=== PATIENT | female | born 1965 | race Two or more races ===

== ENCOUNTER → 2024-04-09 | Outpatient (CLI) | payer MEDICAID, SELFPAY ==
--- NOTE | 2024-04-09 10:29 | XR_ITS ---
Examination: Bilateral hands, 6 views. Technique: AP, Oblique, Lateral each hand total 6 views Date and time of exam: April 09, 2024 1034 hours INDICATIONS: Bilateral hand pain beginning one year ago. 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
--- NOTE | 2024-04-09 10:29 | XR_ITS ---
Examination: Bilateral wrists 6 views TECHNIQUE: AP oblique lateral each wrist total 6 views Exam date and time: April 09, 2000 2410 hours INDICATIONS: Bilateral wrist pain one year FINDINGS: Moderate osteopenia No fracture or dislocation involving either wrist Moderate bilateral osteoarthritis first carpometacarpal joints No erosive arthritis No cortical bone destruction IMPRESSION: Moderate bilateral osteoarthritis first carpometacarpal joints
== END | disposition home or self-care (01) ==
LOC: CDIM 10:12
DX: M19.042 Primary osteoarthritis, left hand (principal); M19.041 Primary osteoarthritis, right hand; M18.0 Bilateral primary osteoarthritis of first carpometacarpal joints
CPT/HCPCS: 73110; 73130